=== PATIENT | female | born 1955 | race Two or more races ===

== ENCOUNTER 2023-03-04 08:56 | Emergency (ER) | payer OTHER ==
[~2023-03-04] VITALS: Ht 160 cm; Wt 126.0 kg
[2023-03-04 09:26] VITALS: BP 114/53; PULSE 61; RESP 20; TEMP 97; O2SAT 95
[2023-03-04] MEDS ORDERED: HYDROcodone-ACET 10/325MG TAB PO ONE (10:30)
[2023-03-04] MEDS ORDERED: METH-1182 PO (10:51)
[2023-03-04] MEDS ORDERED: ACET-1080 PO (10:51)
== END 2023-03-04 10:56 | disposition home or self-care (01) ==
LOC: ER 08:56
DX: S29.011A Strain of muscle and tendon of front wall of thorax, initial encounter (principal); S30.1XXA Contusion of abdominal wall, initial encounter; S80.02XA Contusion of left knee, initial encounter; K44.9 Diaphragmatic hernia without obstruction or gangrene; V43.52XA Car driver injured in collision with other type car in traffic accident, initial encounter; Y93.89 Activity, other specified; Y92.89 Other specified places as the place of occurrence of the external cause; Y99.8 Other external cause status
CPT/HCPCS: 71250; 73562; 74176